=== PATIENT | male | born 1935 | race Caucasian/White ===

== ENCOUNTER 2021-10-28 05:51 | Day surgery (SDC) | payer MEDICARE ==
[~2021-10-28] VITALS: Ht 172.7 cm; Wt 94.7 kg
[~2021-10-28 05:51] MED LIST: ASPI81CH PO; ATORVASTATIN CA80 M1 PO; HYDRA50 PO; Inderal40 MG PO; LASIX20 M2 PO; LOSA50 PO; MULVITA PO; POTA8 PO; PROM25 PO
--- NOTE | 2021-10-28 09:34 | NUR ---
Discharge instructions reviewed with patient. Patient verbalizes understanding. Copy given to patient to take home. Patient States Post-Procedure ride home has been arranged. Discharged via wheelchair to private car for ride home.
[2021-10-29 13:43] LABS: Performing Lab SYMBIODX; Test Name TISSUE BIOPSY
[2021-10-31 09:46] LABS: Result SEE SEPARATE REPORT
== END 2021-10-28 09:36 | disposition home or self-care (01) ==
LOC: ORSCMMR 05:51 → ORD 07:30 → ORSCMMR 07:30
PROVIDERS: Pathology Clinical Pathology/Laboratory Medicine; Surgery
PROC: 07B60ZX Excision of Left Axillary Lymphatic, Open Approach, Diagnostic (ICD-10-PCS; principal; 2021-10-28 07:30)
DX: R59.1 Generalized enlarged lymph nodes (principal); D48.7 Neoplasm of uncertain behavior of other specified sites; I10 Essential (primary) hypertension; G47.33 Obstructive sleep apnea (adult) (pediatric); K74.60 Unspecified cirrhosis of liver; E78.5 Hyperlipidemia, unspecified; Z85.46 Personal history of malignant neoplasm of prostate; Z85.53 Personal history of malignant neoplasm of renal pelvis; Z79.899 Other long term (current) drug therapy; Z79.82 Long term (current) use of aspirin
CPT/HCPCS: 88307; J0690; J1100; J2370; J2405; J2704; J3010; J7120

== ENCOUNTER → 2022-02-10 | Outpatient (CLI) | payer MEDICARE ==
[~2022-02-10] MED LIST changes: +ATOR20 PO; -ATORVASTATIN CA80 M1 PO; +FURO40 PO; +K-Dur20 MEQ PO; -LASIX20 M2 PO; -POTA8 PO
[2022-02-10 17:17] LABS: Albumin, Blood 2.8 g/dL (3.4-5.0); Bilirubin, Total 0.9 mg/dL (0.1-1.0); Bun/Creatinine Ratio 22.6 (12.0-20.0); Calcium, Blood 8.1 mg/dL (8.5-10.1); Creatinine, Blood 1.33 mg/dL (0.60-1.20); Globulin, Blood 2.9 g/dL (2.2-4.0); Potassium, Blood 4.3 mmol/L (3.5-5.5); Total Protein, Blood 5.7 g/dL (6.4-8.2)
[2022-02-10 17:18] LABS: Hematocrit 25.7 % (37.0-53.0); Hemoglobin 7.9 g/dL (13.5-17.5); Mean Corpuscular HGB 30.6 pg (26.0-34.0); Mean Corpuscular HGB Conc 30.7 g/dL (31.5-36.5); Mean Corpuscular Volume 100 fL (80-100); NRBC ABSOLUTE 0.04 K/mm3 (0.00-0.02); NRBC Auto 2.3 /100 WBC (0.0-0.2); RDW Coefficient Variation 15.4 % (11.7-14.2); RDW Standard Deviation 56.1 fL (35.1-46.3); Red Blood Cell Count 2.58 M/mm3 (4.30-5.90); White Blood Cell Count 1.75 K/mm3 (4.00-11.30)
[2022-02-10 18:00] LABS: Mean Platelet Volume 11.9 fL (9.1-12.4); Platelet Count 49 K/mm3 (150-400)
[2022-02-10 18:11] LABS: BAND PERCENT MAN 4 % (0-8); BASOPHILS PERCENT MAN 0 % (0-2); EOSINOPHILS ABSOLUTE MAN 0.15 K/mm3 (0.00-0.68); EOSINOPHILS PERCENT MAN 9 % (0-6); LYMPHOCYTES ABSOLUTE MAN 0.68 K/mm3 (0.84-5.20); LYMPHOCYTES PERCENT MAN 39 % (21-46); MONOCYTES ABSOLUTE MAN 0.07 K/mm3 (0.16-1.47); MONOCYTES PERCENT MAN 4 % (4-13); NEUTROPHILS ABSOLUTE MAN 0.84 K/mm3 (1.96-9.15); SEG NEUTROPHILS PERCENT MAN 44 % (41-73); TOTAL CELLS COUNTED 100
== END | disposition home or self-care (01) ==
LOC: LAB SHORT 16:58 → LAB 16:58
PROVIDERS: Physician Assistant
DX: K74.60 Unspecified cirrhosis of liver (principal)
CPT/HCPCS: 80053; 85025

== ENCOUNTER 2022-02-11 17:26 | Inpatient (IN) | payer MEDICARE ==
[~2022-02-11] VITALS: Ht 172.7 cm; Wt 104.8 kg
[2022-02-11 19:23] LABS: Hematocrit 29.6 % (37.0-53.0); Mean Corpuscular HGB Conc 30.4 g/dL (31.5-36.5); Mean Corpuscular Volume 102 fL (80-100); NRBC ABSOLUTE 0.03 K/mm3 (0.00-0.02); NRBC Auto 1.3 /100 WBC (0.0-0.2); RDW Coefficient Variation 15.4 % (11.7-14.2); RDW Standard Deviation 57.3 fL (35.1-46.3); White Blood Cell Count 2.31 K/mm3 (4.00-11.30)
[2022-02-11 19:29] LABS: International Normalized Ratio 1.14; Prothrombin Time Results 11.9 Sec (9.7-11.5)
[2022-02-11 19:37] LABS: Albumin, Blood 3.1 g/dL (3.4-5.0); Bilirubin, Total 0.8 mg/dL (0.1-1.0); Bun/Creatinine Ratio 21.5 (12.0-20.0); Calcium, Blood 8.5 mg/dL (8.5-10.1); Creatinine, Blood 1.3 mg/dL (0.60-1.20); Globulin, Blood 3.2 g/dL (2.2-4.0); Potassium, Blood 4.1 mmol/L (3.5-5.5); Total Protein, Blood 6.3 g/dL (6.4-8.2)
[2022-02-11 20:43] LABS: BASOPHILS ABSOLUTE MAN 0.04 K/mm3 (0.00-0.23); BASOPHILS PERCENT MAN 2 % (0-2); EOSINOPHILS ABSOLUTE MAN 0.34 K/mm3 (0.00-0.68); EOSINOPHILS PERCENT MAN 15 % (0-6); LYMPHOCYTES % ATYPICAL MANUAL 2 % (0-0); LYMPHOCYTES ABSOLUTE MAN 0.94 K/mm3 (0.84-5.20); LYMPHOCYTES PERCENT MAN 39 % (21-46); MONOCYTES ABSOLUTE MAN 0.13 K/mm3 (0.16-1.47); MONOCYTES PERCENT MAN 6 % (4-13); NEUTROPHILS ABSOLUTE MAN 0.83 K/mm3 (1.96-9.15); SEG NEUTROPHILS PERCENT MAN 36 % (41-73); TOTAL CELLS COUNTED 100
[2022-02-11 20:46] LABS: Mean Platelet Volume 11.9 fL (9.1-12.4); Platelet Count 77 K/mm3 (150-400)
[2022-02-12 02:03] LABS: Amylase, Body Fluid 27 U/L
[2022-02-12 02:04] LABS: Glucose, Body Fluid 124 mg/dL; Lactate Dehydrogenase, Body Fl 76 U/L; Protein, Body Fluid 1.9 g/dL; Triglycerides, Body Fluid 356 mg/dL
[2022-02-12 02:13] LABS: Automated BF WBC Count 0.382 K/mm3 (0-999); Body Fluid WBC Count 382 /mm3 (0-999); RBC Count, Body Fluid 40000 /mm3 (0-0)
[2022-02-12 02:19] LABS: Appearance, Body Fluid Turbid (Clear); Color, Body Fluid Red (None-Yellow); Total Cell Count, Body Fluid 100
--- NOTE | 2022-02-12 15:43 | NUR ---
Spoke with ED Paco Katz earlier this AM and discussed case. Pt interested in hospice. Pt resting in bed and denies pain at this time. Dyspnea noted as evidenced by ability to speak in 2 to 3 word sentences and work of breathing. Pt's abdomen appears significantly distended and confirms this is contributing to his dyspnea. Engaged in therapeutic discussion regarding goals of care. Pt confirms interest in hospice. Educated on hospice philosophy with V/U made by Pt. He reports his would also benefit from hospice services. Pt reports spouse has COPD, is on oxygen and is bed bound. Pt reports he needs help with transfering, ambulation, and bathing. Pt reports his son works parts sales manager at [employer] and the rest of the time son is assisting Pt and Pt's spouse. He reports having already called an agency but can not remember the name. Pt expresses appreciation and reports no other concerns at this time. Called and spoke with Blaire at [facility]. She confirms Pt has contacted them and she has gathered orders. Plan is to admit Pt tomorrow if Pt is not still in the hospital. Spoke with Dr Marquez and discussed case. Dr Marquez will consider appropriateness for Pleur X drain. Spoke with Paco Dempsey and discussed case. PPS 40% ADLs 3/6 Palliative Care will remain available.
--- NOTE | 2022-02-12 17:46 | NUR ---
SHIFT SUMMARY PT A&O X4 AND IN PLEASENT MOOD. MULTIPLE INCONT. VOIDS DUE TO SWELLING AND LASIX-ORDERS FOR SMITH. ECHO COMPLETE THIS SHIFT. 1 SBA TO BSC T/O SHIFT, STEADY GAIT. PARA SITE BANDAGE CHANGED THIS SHIFT DUE TO LEAKING. MI'KMAQ. CALL LIGHT W/IN REACH.
--- NOTE | 2022-02-12 23:10 | NUR ---
SMITH CATH PLACED PER MD ORDERS AND WITH ASEPTIC TECHNIQUE. DRAINING WELL. TOLERATED WELL. CALL LIGHT IN REACH
--- NOTE | 2022-02-13 05:20 | NUR ---
TREND INVESTIGATOR SUMMARY RESTING QUIETLY AT INTERVALS. INCONT OF URINE AT SHIFT COMMENCE, BED LINEN CHANGED. SMITH WAS ORDERED, SMITH CATH INSERTED WITH ASEPTIC TECHNIQUE. DRAINING LIGHT DELFINO. ABD ASCITES CONTINUE, DRESSING OF ABD INTACT. HOB ELEVATED FOR COMFORT. O2 SATS HIGH 80'S TO LOW 90'S PER CONT PULSE OX. CALL LIGHT IN REACH
[2022-02-13 11:02] LABS: Hematocrit 29.2 % (37.0-53.0); Hemoglobin 8.5 g/dL (13.5-17.5); Mean Corpuscular HGB 30.4 pg (26.0-34.0); Mean Corpuscular HGB Conc 29.1 g/dL (31.5-36.5); Mean Corpuscular Volume 104 fL (80-100); Mean Platelet Volume 12.1 fL (9.1-12.4); Platelet Count 74 K/mm3 (150-400); RDW Standard Deviation 57.9 fL (35.1-46.3); White Blood Cell Count 2.18 K/mm3 (4.00-11.30)
[2022-02-13 11:18] LABS: Albumin, Blood 2.7 g/dL (3.4-5.0); Albumin/Globulin Ratio 0.9 (0.8-1.8); Bilirubin, Total 0.8 mg/dL (0.1-1.0); Bun/Creatinine Ratio 22.7 (12.0-20.0); Calcium, Blood 8.3 mg/dL (8.5-10.1); Creatinine, Blood 1.28 mg/dL (0.60-1.20); Globulin, Blood 3.1 g/dL (2.2-4.0); Potassium, Blood 3.9 mmol/L (3.5-5.5); Total Protein, Blood 5.8 g/dL (6.4-8.2)
[2022-02-13 13:21] LABS: BAND PERCENT MAN 2 % (0-8); BASOPHILS ABSOLUTE MAN 0.02 K/mm3 (0.00-0.23); BASOPHILS PERCENT MAN 1 % (0-2); EOSINOPHILS ABSOLUTE MAN 0.32 K/mm3 (0.00-0.68); EOSINOPHILS PERCENT MAN 15 % (0-6); LYMPHOCYTES ABSOLUTE MAN 0.65 K/mm3 (0.84-5.20); LYMPHOCYTES PERCENT MAN 30 % (21-46); MONOCYTES ABSOLUTE MAN 0.15 K/mm3 (0.16-1.47); MONOCYTES PERCENT MAN 7 % (4-13); NEUTROPHILS ABSOLUTE MAN 1.02 K/mm3 (1.96-9.15); SEG NEUTROPHILS PERCENT MAN 45 % (41-73); TOTAL CELLS COUNTED 100
--- NOTE | 2022-02-13 15:18 | NUR ---
PLAN FOR NPO @ [facility] IN PREP FOR ABD. CATH PLACEMENT
--- NOTE | 2022-02-13 15:34 | NUR ---
Brief supportive visit this afternoon. Primary RN and MANAGER WEB APPLICATION in preparing Pt for shower. Pt denies pain at this time. Pt agreeable with plan for PleurX drain placement. No concerns reported at this time. Palliative Care will remain available.
--- NOTE | 2022-02-13 17:02 | NUR ---
SHIFT SUMMARY PT A&O X4 AND IN PLEASENT MOOD T/O SHIFT. BANDAGE ON ABD CHANGED THIS SHIFT. PLAN TO BE NPO @ OOOO PENDING PLUREX CATHETER PLACEMENT BY DR. JIMENEZ TOMORROW AFTERNOON. PT SON AND @ BEDSIDE @ THIS TIME. SHOWERED AND LINEN CHANGE THIS SHIFT. CONT. PULSE OX IN PLACE, 4L NC 92%. CALL LIGHT W/IN REACH. VSS. PT TO CHEST XRAY @ THIS TIME. SMITH DRAINING TO GRAVITY.
--- NOTE | 2022-02-14 05:10 | NUR ---
OSCAR PARIS IS NPO, AWAITING INSERTION OF PLEUREX CATHETER BY DR. JIMENEZ THIS THURSDAY AFTERNOON. SEVERE ABD DISTENTION. EARLIER THIS NOC SHIFT, PT WOKE UP AND WAS CONFUSED TO WHERE HE WAS, THINKING HE WAS HOME. HE GOT UP AND WALKED TO THE COMMODE AND HAD INCONTINENT LOOSE STOOLS. ATTEMPTED TO WEAN PT'S OXYGEN DOWN TO 4-5LPM, BUT DURING SLEEP HIS O2 SATS DROPPED TO 82 - 85%, HE IS AN OPEN MOUTH SLEEPER. INCREASING OXYGEN TO 6LPM, PT WAS ABLE TO SLEEP AND MAINTAIN SATS GREATER THAN 92%. FOLLOWS DIRECTIONS, PLEASANT. PLAN IS FOR PT TO BE DISCHARGED HOME ON HOSPICE.
[2022-02-14 08:35] LABS: Influenza A, PCR NEGATIVE (NEGATIVE); Influenza B, PCR NEGATIVE (NEGATIVE); Resp Syncytial Virus, PCR NEGATIVE (NEGATIVE); SARS-Cov-2 (COVID-19) PCR, MMC NEGATIVE (NEGATIVE)
--- NOTE | 2022-02-14 09:34 | NUR ---
Supportive visit this AM. Pt resting in bed and appears mildly dyspneic as evidenced by work of breathing. Pt reports mild anxiety due to planned procedure. Pt denies pain at this time. Distended abdomen noted. Offered therapeutic conversation and answered questions. Spoke with Primary RN Xenia and discussed case. Pending amount of fluid drained during procedure Pt may benefit from continued stay in the hospital over the weekend until hospice can admit on Thursday. Pt will need education on PleurX drain and possibly re-enforcement of education. Palliative Care will remain available.
--- NOTE | 2022-02-14 14:46 | NUR ---
PATIENT RETURNED FROM SURGERY VIA [facility] AT 1410. VSS, SLEEPY, O2 @ 3 L/MIN NC. TRANSFERRED BTB VIA STAFF, CONTINUOUS OXIMETRY BACK ON. OF NOTE, PT DESATS TO 81-86% WHEN SLEEPING REGARDLESS OF O2 HE IS A MOUTH BREATHER. PLACED O2 IN PATIENT'S MOUTH WHILE HE SLEPT AND O2 SAT INCREASED TO 94-98% ON 3 L/MIN NC. STATES HIS PAIN IS MINIMAL, CONSTANT LOW LEVEL ACHE IN HIS ABDOMEN, DECLINED PAIN MEDICATIONS.
--- NOTE | 2022-02-14 19:09 | NUR ---
SHIFT SUMMARY: PLEUREX DRAIN PLACED IN R MID ABDOMEN, DRESSING CD&I. ABDOMEN IS SOFTER AND PT STATED HE IS ABLE TO BREATHE BETTER. O2 @ 2 L/MIN NC, BUT HE DESATS TO LOW/MID 80%'S WHILE SLEEPING (MOUTH BREATHER); DOES BETTER IF NC IS IN HIS MOUTH, MAY HAVE HIGHER OXYGEN NEEDS AT TIMES. SLEPT MOST OF THE AFTERNOON AFTER HIS PROCEDURE. TOLERATING PO INTAKE. MAY NEED HOME O2 EVAL PRIOR TO D/C. AND SON VISITED TODAY.
--- NOTE | 2022-02-15 01:11 | NUR ---
PT BECOMING INCREASINGLY CONFUSED AND HAS PULLED OFF HIS OXYGEN AND TRIED PULLING OUT HIS SMITH SAYING THAT HE FELT LIKE HE HAD TO URINATE. PT REORIENTED. HE IS 79% ON RA - CANNULA REPLACED AND INCREASED TO 6L BY NC. PT BACK TO SLEEP AT THIS TIME
--- NOTE | 2022-02-15 05:58 | NUR ---
FORGE HELPER SUMMARY PT STARTED THE SHIFT ON 2L BY NC BUT BEGAN TO HAVE DESATURATION WHILE SLEEPING INTO THE HIGH 60S AND LOW 70S; O2 INCREASED TO 8LPM BY NC AND PUT IN HIS MOUTH. SATURATION RETURNED TO NORMAL WHEN PT WAS WOKEN UP - RT CONTACTED AND PT PLACED ON CPAP FOR SLEEP. PT BECAME SLIGHTLY CONFUSED AND ATTEMPTED TO PULL HIS SMITH AND TOOK OFF HIS OXYGEN - REORIENTED AND COOPERATIVE. HE HAS A LARGE AMOUNT OF PENILE SWELLING AND GENERAL ANASARCA. PT ALERT AND ORIENTED X3 BUT CAN GET CONFUSED THROUGHOUT THE NIGHT. PLEUR-X DRAIN DRESSING C/D/I. PLAN TO DISCHARGE HOME ON HOSPICE.
--- NOTE | 2022-02-15 06:13 | NUR ---
PT DOES TAKE OFF HIS CPAP MASK WHILE SLEEPING. PT COOPERATIVE TO PUTTING IT BACK ON WHEN WOKEN UP.
--- NOTE | 2022-02-15 14:40 | NUR ---
SHIFT SUMMARY PT RESTING QUIETLY AT START OF SHIFT, WEARING CPAP. PT LATER AWAKE TAKING CPAP OFF; O2 VIA N/C PLACED. PER SHIFT REPORT, AND LATER DR BUSTAMANTE, PT TO D/C HOME ON HOSPICE THURSDAY. PT'S SON TO BE TAUGHT HOW TO MANAGE PLEUREX DRAIN TO LLQ. MULTIPLE ATTEMPTS MADE TO CONTACT PT'S SON AND ; UNSUCCESSFUL TO PRESENT. SEVERAL MESSAGES LEFT TO RETURN CALL, BUT NO RESULTS OF YET. PT IS VERY FORGETFUL. RESPIRATIONS SHALLOW. SMITH CATHETER, PATENT AND DRAINING CL YELLOW; PLACED FOR RETENSION, PER REPORT. HX OF HF, LYMPHOMA, PROSTATE CA, AND CIRRHOSIS. ABD VERY DISTENED R/T ASCITES. REPOSITIONED THRU OUT SHIFT. CALL LT IN REACH. DENIES FURTHER NEEDS AT THIS TIME.
--- NOTE | 2022-02-15 20:03 | NUR ---
Pt transitioned to comfort measures only. Lasix treament preserved will review day by day. Peurex drain patent. The patient is eating soem treats from his family and enjoying their company. Review of comfort meds with patint and family. Did pleurex traing with pt son. He demonstarted understanding and willingness.
--- NOTE | 2022-02-16 05:54 | NUR ---
SUPERINTENDENT MEASUREMENT SUMMARY PT WAS PUT ON COMFORT CARE YESTERDAY. HE CONTINUES TO BECOME ALTERED AT NIGHT, ASKING WHERE HE IS AND IF HE IS DYING. PT COMFORTED DURING THESE TIMES. HE DID NOT REQUIRE ANY MEDICATION THROUGHOUT THE SHIFT. ABDOMEN APPEARS INCREASINGLY DISTENDED. PT DOES NOT WEAR HIS OXYGEN CONSISTENTLY, PULLING IT OFF AT NIGHT. HE IS AGREEABLE TO PUTTING IT BACK ON WHEN AWAKE. PT REPOSITIONED BUT RETURNS TO SPOT OF COMFORT.
--- NOTE | 2022-02-16 05:57 | NUR ---
PT ASKS DIRECTOR OF VOCATIONAL TRAINING AND RN IF HE IS "IN HEAVEN OR IN HELL". PT REORIENTED AT THIS TIME AND APPEARS CALM.
--- NOTE | 2022-02-16 18:25 | NUR ---
SHIFT SUMMARY PT PRETTY SLEEPY AT START OF SHIFT AND FIRST PART OF THE DAY. WOULD WAKE FOR CARE BUT GO BACK TO SLEEP. FAMILY IN THIS AM, UNTIL AFTER LUNCH. PT NOT WANTING TO EAT BREAKFAST AND NOT TOO MUCH FOR LUNCH, BUT FAMILY MAY HAVE BROUGHT FOOD IN AGAIN TODAY. PT DID EAT WELL FOR DINNER AND THEN A CUP OF M&M'S AND CHOCOLATE KISSES AFTERWARDS. PT STILL SITTING UP EATING AT THIS TIME. ABD SWOLLEN, BUT NO C/O. PT UNABLE TO TOLERATE LYING DOWN THOUGH. DOES OK SEMI UPRIGHT. WILL CONTINUE TO MONITOR. CALL LT IN REACH.
--- NOTE | 2022-02-17 04:05 | NUR ---
SHIFT SUMMARY PATIENT ON COMFORT CARE. AXOX 2 AND 1-2 ASSIST TO BSC. ON 4L O2 NC. SMITH PATENT AND DRAINING TO GRAVITY. NO S/SX OF PAIN OR DISTRESS. PIV REMAINS INTACT. COOPERATIVE WITH CARE. CALL LIGHT IN REACH. BED IN LOWEST POSITION. WILL CONTINUE TO MONITOR UNTIL DAY SHIFT NURSE ASSUMES CARE.
--- NOTE | 2022-02-17 11:54 | NUR ---
Spiritual care visit attempted. Pt is lying in bed and immediately shares about his spiritual distress but family came in pt's rm and connection was lost, then other disciplines enter rm and pt is informed of his d/c. I will attempt to find another quiet moment with pt prior to d/c.
--- NOTE | 2022-02-17 12:34 | NUR ---
PT RESTING QUIETLY AT START OF SHIFT. WOKE EASILY FOR CARE. AWAKE TODAY UNTIL LEAVING TO GO HOME ON HOSPICE. PT'S SON AND HERE THIS AM TO VISIT. BED BATH GIVEN AFTER BREAKFAST. GERMÁN HERE WELL, BUT PT HAD TOO MANY VISITORS AND INTERRUPTIONS TO BE ABLE TO TALK WITH HIM. DR BUSTAMANTE IN TO SEE PT AND DISCUSS D/C PLANS. PT AGREEABLE. PHILIPP GRAYSON, FROM [facility] HERE TO DRAIN PLEUREX DRAIN IN ABD; 800cc REMOVED. TOLERATED WELL AND REPORTED FEELING BETTER. PT DENIED PAIN. NO C/O. PLEASANT AND CO-OP WITH CARE. DENIED FURTHER NEEDS. TX HERE TO P/U PT VIA QUAN TO GO HOME ON HOSPICE.
--- NOTE | 2022-02-17 13:43 | NUR ---
Case conference with pt's RN re: no IV access for IV lasix. Pt is able to swallow. Recommended PO lasix for comfort and to assist with ascities reported by RN. Pt with d/c pending today.
--- NOTE | 2022-02-17 16:52 | NUR ---
DR BUSTAMANTE CALLED @ 1650 TO REQUEST FAMILY TO BE INSTRUCTED TO HOLD LASIX AND HYDRALAZINE HOME MEDICATIONS. THIS RN CALLED PT'S SON, MICHELLE AT [phone] AND LEFT A DETAILED MESSAGE. I ALSO INSTRUCTED SON MICHELLE TO CALL BACK WITH ANY QUESTIONS AT [phone]. I THEN LEFT MESSAGE AT NET FRONT END DEVELOPER WITH INFORMATION RELATED TO THESE INSTRUCTIONS IN THE EVENT THAT PT'S SON MICHELLE CALLED BACK.
== END 2022-02-17 12:16 | disposition hospice, home (50) | DRG 432 ==
LOC: ER 17:26 → MEDS 02-12 02:34 → ERHOLD 02-12 02:34 → MEDS 02-12 09:20
PROVIDERS: Family Medicine; Physician Assistant; Student in an Organized Health Care Education/Training Program; Surgery; ADMIT Family Medicine
PROC: 0W9G3ZZ Drainage of Peritoneal Cavity, Percutaneous Approach (ICD-10-PCS; principal; 2022-02-12)
PROC: 0W9G30Z Drainage of Peritoneal Cavity with Drainage Device, Percutaneous Approach (ICD-10-PCS; 2022-02-14)
PROC: 5A09357 Assistance with Respiratory Ventilation, Less than 24 Consecutive Hours, Continuous Positive Airway Pressure (ICD-10-PCS; 2022-02-15)
DX: K74.60 Unspecified cirrhosis of liver (principal); J96.01 Acute respiratory failure with hypoxia; R18.8 Other ascites; C85.90 Non-Hodgkin lymphoma, unspecified, unspecified site; D61.818 Other pancytopenia; Z66 Do not resuscitate; Z51.5 Encounter for palliative care; I50.30 Unspecified diastolic (congestive) heart failure; J91.8 Pleural effusion in other conditions classified elsewhere; Z20.822 Contact with and (suspected) exposure to COVID-19; R60.1 Generalized edema; D69.59 Other secondary thrombocytopenia; Z88.2 Allergy status to sulfonamides; Z79.82 Long term (current) use of aspirin; Z79.899 Other long term (current) drug therapy; Z92.21 Personal history of antineoplastic chemotherapy; Z90.5 Acquired absence of kidney; Z85.46 Personal history of malignant neoplasm of prostate
CPT/HCPCS: 0241U; 36415; 49082; 71045; 71046; 74177; 80053; 82150; 82945; 83615; 83880; 84157; 84478; 85025; 85610; 85730; 86850; 86900; 86901; 87070; 87205; 88108; 88305; 89051; 93005; 93010; 93306; 94660; 94762; 96374; 99285-25; A9270; J1940; J2370; J2405; J2704; J3010; J7120; Q9967